=== PATIENT | male | born 1975 | race Caucasian/White ===

== ENCOUNTER 2021-03-21 09:07 | Emergency (ER) | payer OTHER ==
[2021-03-21 09:52] LABS: BASOPHIL 1.5 % (0-2); EOSINOPHIL 6.5 % (0-5); HCT 45.9 % (42.0-52.0); HGB 15.6 g/dl (13.2-18.0); LYMPHOCYTE 33.2 % (15-48); MCH 31.6 pg (25.0-31.0); MCV 93.1 fL (78.0-100.0); MONOCYTE 13.7 % (0-12); MPV 10.2 fL (6.0-9.5); NEUTROPHIL 44.7 % (41-80); NRBC 0; PLT 181 K/uL (150-400); RBC 4.93 M/uL (4.70-6.00); RDW 12.7 % (11.5-14.0); WBC 4.8 K/uL (4.0-10.5)
[2021-03-21 10:07] LABS: INR 0.94 (0.9-1.2); PTT 31.7 SECONDS (24.4-34.7)
[2021-03-21 10:17] LABS: ALBUMIN 4.5 g/dL (3.4-5.0); BILIRUBIN - TOTAL 0.4 mg/dL (0.2-1.0); BUN/CREAT RATIO (CALC) 11.3 RATIO; CREATININE 1.06 mg/dL (0.67-1.17); GLOBULIN (CALCULATION) 4.4 g/dL; POTASSIUM 4.1 mmol/L (3.5-5.1); TOTAL PROTEIN 8.9 g/dL (6.4-8.2)
== END 2021-03-21 11:25 | disposition home or self-care (01) ==
LOC: FER 09:07
PROVIDERS: Emergency Medicine
DX: R07.89 Other chest pain (principal); Z87.891 Personal history of nicotine dependence
CPT/HCPCS: 36415; 71045; 80053; 83880; 84484; 85025; 85610; 85730; 93005

== ENCOUNTER 2021-04-15 12:24 | Emergency (ER) | payer OTHER ==
[2021-04-15 14:25] LABS: CORONAVIRUS 2019 SARS-COV-2 NEGATIVE (NEGATIVE); INFLUENZA A NAA NEGATIVE (NEGATIVE)
[2021-04-15 14:32] LABS: BASOPHIL 0.6 % (0-2); EOSINOPHIL 3.3 & (0-5); HCT 48.1 % (42.0-52.0); HGB 15.7 g/dl (13.2-18.0); LYMPHOCYTE 9.6 % (15-48); MCH 30.6 pg (25.0-31.0); MCHC 32.6 g/dL (32.0-36.0); MCV 93.8 fL (78.0-100.0); MONOCYTE 8.2 % (0-12); MPV 10.2 fL (6.0-9.5); NEUTROPHIL 78.2 % (41-80); PLT 175 K/uL (150-400); RBC 5.13 M/uL (4.70-6.00); RDW 12.2 % (11.5-14.0); WBC 8.79 K/uL (4.0-10.5)
[2021-04-15 14:57] LABS: BUN/CREAT RATIO (CALC) 17.1 RATIO; CREATININE 1.05 mg/dL (0.67-1.17); POTASSIUM 4.1 mmol/L (3.5-5.1)
== END 2021-04-15 16:30 | disposition home or self-care (01) ==
LOC: FER 12:24
PROVIDERS: Nurse Practitioner Family
DX: H81.10 Benign paroxysmal vertigo, unspecified ear (principal); I10 Essential (primary) hypertension; Z20.822 Contact with and (suspected) exposure to COVID-19
CPT/HCPCS: 36415; 80048; 84443; 85025; 99284; U0002